=== PATIENT | female | born 2000 | race Caucasian/White ===

== ENCOUNTER 2025-02-22 00:19 | Day surgery (SDC) | payer OTHER, SELFPAY ==
[2025-02-14 10:49] VITALS: BMI 22.5
--- NOTE | 2025-02-14 10:56 | PC.NURSE ---
Report to the Outpatient Waiting Room, entrance under the green pavilion located off [facility], at time _1pm_ on date _[id number]_. Planned Procedure Time: _3pm_.? Time changes happen often and if your time is changed the preop area will call you the afternoon before. - You and your visitor will be asked to self-screen and do not enter if you have any COVID symptoms. Please call surgeon if you need to reschedule. - A mask is optional within the hospital at this time. Patients may have clear liquids (water, carbonated beverages, clear teas, apple juice) until 3 hours prior to surgery with a maximum of 20 ounces. - No food from midnight until time of surgery and no smoking, or chewing tobacco (or any form of nicotine). No chewing gum, candy or mints. Take only the following medications with a SIP of water on the morning of surgery: __Sertraline DO NOT STOP ANY OF YOUR OTHER PRESCRIPTION MEDICATIONS PRIOR TO SURGERY EXCEPT THE FOLLOWING Hold all vitamins and supplements for 3 days per anesthesiologist. Medications to discontinue per physician Date to take last dose Please no make-up, nail turkish, hairspray, perfume, deodorant, or body powder the day of surgery.? No jewelry (including any body piercings) or valuables the day of surgery, leave them at home.? Please take a shower or bath the night before, or the morning of, surgery with an antibacterial soap.? Wear comfortable, loose fitting clothing.? - Jewelry must be removed prior to entering the operating room.? Rings and piercings that are not removed may be cut off. - The hospital will not accept responsibility for valuables.? - Please leave all valuables, including medications, at home the day of surgery. If you are going home after surgery, a licensed fence post driver must drive you home.? - NO public transportation without another adult if you receive anesthesia. - We recommend that an adult stay with you for 24 hours following discharge. - We also recommend that you do not drive, make important decision, drink alcoholic beverages, or take any drugs that were not prescribed by your health care provider for at least 24 hours after your discharge time. Follow any additional instructions given to you from your surgeon. Telephone instructions given to _Kim___and asked if any additional questions and then verbalized understanding. Patient advised to call surgeon office or pre surgery nurse liaison [phone] if any additional questions.
[2025-02-22] VITALS (8 sets, daily range): BP systolic 127–157; BP diastolic 76–99; PULSE 82–115; RESP 12–18; TEMP 36.6–37.1; O2SAT 94–100
--- OUTSIDE RECORDS SUMMARY | 2025-02-22 00:21 | XMS_ITS | Clinical Summary ---
Author Organization [facility] Address [address] [place] [address] Care Team Providers Care Night Monitor Name Role Phone Elysia Wisdom MD Primary Care Provider [phone] [facility],non-owned Affiliates and Associated Physician Practices is amultiple site organization consisting of ambulatory clinics and hospital sitesin [place], [place], [place] and [place]. This disclosure is being madepursuant to the Care Everywhere program and may not contain all information available regarding this patient. Last updated 18.[facility] Allergies No known active allergies Medications * Be aware that medications may not be up to date on this document. Alwaysverify current medications with the patient. Medication Sig Dispensed Refills Start Date End Date Status Vit-Fe Fumarate-FA ( vitamin) 28-0.8 MG tablet Take 1 (one) tablet by mouth once daily Active ibuprofen (Motrin) 600 MG tablet Take 1 (one) tablet by mouth every 6 hours as needed for Pain 45 tablet 04/11/2023 Active Additional Information Patient not taking.Reported on 04/18/2023 docusate sodium (Colace) 100 MG capsule Take 1 (one) capsule by mouth 2 times daily as needed for Constipation 45 capsule 04/11/2023 Active Additional Information Patient not taking.Reported on 04/18/2023 oxyCODONE, immediate release, (Roxicodone) 5 MG tabletIndications: state (HCC) Take 1 (one) tablet by mouth every 6 hours as needed for Pain 12 tablet 04/11/2023 Active Additional Information Patient not taking.Reported on 04/18/2023 norethindrone (Ortho Micronor) 0.35 MG tabletIndications: Contraceptive Therapy Take 1 (one) tablet by mouth once daily Reasons: Control Treatment 3 packet 3 05/16/2023 Active Active Problems No known active problems Resolved Problems Problem Noted Date Diagnosed Date Resolved Date Vaginal bleeding 04/07/2023 04/11/2023 JAIL: abnormality in pr egnancy - Club Feet 03/25/2023 04/08/2023 Overview (03/25/2023): Images from the original note were not included. Care Provider: Dr. Chen [place] [facility] [place] consultants involved: RN-Kei; Ortho-Trung Deutsch Diagnosis: Bilateral Club Feet Planned surveillance: Patient was not seen in JAIL/by JAIL MFM - ortho consult only Delivery location: Delivery mode: TBD - G1 Desired Delivery GA: Full Term follow up: per Ortho consult on 5.5: The parents will contact us after the of her daughter, with any findings, and schedule serial casting with us if they would like. To schedule an appointment with orthopedics, please call [phone] Medical Collections Specialist: Care plan based on evaluation and is subject to change based on assessment. See Images or Cardiac under Chart Review for US/ ECHO/ MRI reports. consult 03/21/2023 04/11/2023 Immunizations Name Administration Dates Next Due MMR 04/09/2023() TDAP (7yrs+) 04/08/2023() Social History Tobacco Use Types Packs/Day Years Used Date Smoking Tobacco: Never Smokeless Tobacco: Never Tobacco Cessation:Counseling Given: Not Answered Alcohol Use Standard Drinks/Week Comments Not Currently 0 (1 standard drink = 0.6 oz pur e alcohol) Overall Financial Resource Strain (CARDIA) Answe r Date Recorded How hard is it for you to pa y for the very basics like food, housing, medical care, and heating? Not hard at all 05/16/2023 [facility] [place] of Occupat ional Health - Occupational Stress Questionnaire Answer Date Recorded Do you feel stress - tense, restless, nervous, or anxious, or unable to sleep at night because your mind is troubled all the time - these days? Not at all 05/16/2023 Hunger Vital Sign Answer Date Recorded Within the past 12 months, y ou worried that your food would run out before you got the money to buy more. Never true 05/16/20 23 Within the past 12 months, t he food you bought just didn't last and you didn't have money to get more. Never true 05/16/2023 PRAPARE - Transportation Answer Date Re corded In the past 12 months, has l ack of transportation kept you from medical appointments or from getting medications? No 04/19 In the past 12 months, has l ack of transportation kept you from meetings, work, or from getting things needed for daily living? No 05/16/2023 Housing Stability Vital Sign Answer Papi e Recorded In the last 12 months, was t here a time when you were not able to pay the mortgage or rent on time? No 05/16/2023 In the last 12 months, how many places have you lived? 1 05/16/2023 In the last 12 months, was t here a time when you did not have a steady place to sleep or slept in a prison (including now)? No 05/16/2023 [place] Depression Scale Answer Date Recorded [place] Depression Scale Total 0 05/16/2023 The thought of harming myself has occurred to me . Never 05/16/2023 Sex and Gender Information Value Date Recorded Sex Assigned at Not on file Gender Identity Female 12/29/2024 8:30 AM INSPECTOR SET UP AND LAY OUT Sexual Orientation Straight 12/29/2024 8: 30 AM INSPECTOR SET UP [employer] LAY OUT Last Filed Vital Signs Vital Sign Reading Time Taken Comments Blood Pressure 117/79 05/16/2023 9:47 AM CDT Pulse 82 05/16/2023 9:47 AM CDT Temperature 36.4 C (97.6 F) 04/11/2023 7:45 AM CDT Respiratory Rate 16 04/11/2023 7:45 AM CDT Oxygen Saturation 100% 04/11/2023 7:45 AM CDT Inhaled Oxygen Concentration - - Weight 63.5 kg (140 lb) 05/16/2023 9:47 AM CDT Height 162.6 cm (5' 4 ) 04/07/2023 2:48 PM CDT Body Mass Index 24.03 04/07/2023 2:48 PM CDT Plan of Treatment Health Maintenance Due Date Last Done Comments HIV SCREENING 2014 HPV VACCINE (1 - 3-dose series) 2014 HEPATITIS C SCREENING 04/10/2017 DTAP/TDAP/TD VACCINES (1 - Tdap) 2018 HEPATITIS B VACCINE (1 of 3 - 19+ 3-dose series) 2018 CHLAMYDIA/GONORRHEA SCREENING 04/07/2024 04/07/2023 COVID-19 VACCINE (3 - 2023-2 5 season) 2024 11/15/2021, 10/16/2021 INFLUENZA VACCINE (#1) 2024 08/23/2022 DEPRESSION SCREENING 11/17/2024 PAP SMEAR 05/16/2026 05/16/2023 ZOSTER VACCINE (1 of 2) 2049 HIB VACCINE Aged Out No longer eligi ble based on patient's age to complete this topic MENINGOCOCCAL (Group B) VACCINE SHARED DECISION-MAKING Aged Out No longer eligible based on patient's age to complete this topic MENINGOCOCCAL GROUPS A/C/Y/W VACCINE Aged Out No longer eligible b ased on patient's age to complete this topic PNEUMOCOCCAL VACCINE Aged Out No long er eligible based on patient's age to complete this topic Procedures Procedure Name Priority Date/Time Associated Diagnosis Comments PAP IG LB RFLX HPV APTIMA ASCU Routine 05/16/2023 10:15 AM CDT care and examination CHLAMYDIA + GC AMPLIFIED PROBE STAT 04/07/2023 4:09 PM CDT Vaginal bleeding from Last 3 Months or Most Recently Relevant to Health Maintenance Results * PAP IG LB RFLX HPV APTIMA ASCU (05/16/2023 10:15 AM CDT) Diagnosis Comment 05/21/2023 10:08 AM CDT [facility] Comment: NEGATIVE FOR INTRAEPITHELIAL LESION OR MALIGNANCY. THIS SPECIMEN WAS RESCREENED PART OF OUR TRANSFER KNITTER PROGRAM. Specimen Adequacy Comment 023 10:08 AM CDT [facility] Comment:Satisfactory for dora luation. No endocervical component is identified. Performed by Comment 05/21/2023 10:08 AM CDT [facility] Comment:Raquel Breen Cytodanii chnologist (ASC) QC Reviewed by Comment 05/21/2023 10:08 AM CDT [facility] Comment:Candie Chan Distillation Operator Helper (ASC) Comment . 05/21/2023 10:08 AM CDT [facility] Note Comment 05/21/2023 10:08 AM CDT [facility] Comment: The Pap smear is a screening test designed to aid in the detection of premalignant and malignant conditions of the uterine cervix. It is not a diagnostic procedure and should not be used as the sole means of detecting cervical cancer. Both false-positive and false-negative reports do occur. IGLBP CPT Code Automation Comment 05/21/2023 10:08 AM CDT [facility] Comment: This liquid based ThinPrep(R) pap test was screened with the use of an image guided system. Note Comment 05/21/2023 10:08 AM CDT [facility] Comment: The HPV DNA reflex criteria were not met with this specimen result therefore, no HPV testing was performed. Pathology/Cytolo gy ENTIRE ENDOCERVIX / Unknown Collection / Unknown 05/16/2023 10:15 AM CDT 05/16/2023 10:26 AM CDT Narrative [facility] - 05/21/2023 10:08 AM CDT Performed at: [address] [place] [address] [id number] Hydraulic Jack Mechanic: Fang Tejada MD, Phone: [phone] Specimen Comment: No. of containers..01 ThinPrep Vial Lindsey Evans LAWN MOWER-LANDSCAPE ARCHITECTURE TEACHER LAB - PATHOLOGY/ CYTOLOGY ORDERABLES [facility]) [address] [place] [address] * CHLAMYDIA + GC AMPLIFIED PROBE (04/07/2023 4:09 PM CDT) Chlamydia Amplified Probe Negative Negative 04/08/2023 4:01 AM CDT [facility] GC Amplified Probe Negative Negative 04/08/2023 4:01 AM CDT [facility] Microbiology ENTIRE ENDOCERVIX / Unknown Collection / Unknown 04/07/2023 4:09 PM CDT 04/07/2023 4:13 PM CDT Narrative [facility] - 04/08/2023 4:01 AM CDT Results based on detection/no detection of ribosomal RNA by amplified method. Olegario Bowen DO LAB - MICROBIOLOGY O RDERABLES [facility] [address] [place] [address], [facility] [phone] from Last 3 Months or Most Recently Relevant to Health Maintenance Advance Directives * Full Code (Latest Code Status on File) Date Activated Date Inactivated Comments 04/07/2023 4:48 PM 04/11/2023 1:51 PM Care Teams Night Monitor Relationship Specialty Start Date End Date Elysia Wisdom MD [address] [place] [address] PCP - General Family Medicine 04/07/23
[2025-02-22] MEDS: LACTATED RINGERS 1,000 ML 30 ML IV CONT ×2 (10:30→13:33)
[2025-02-22 10:46] LABS: BEDSIDEPREGUCG Negative (Negative)
[2025-02-22] MEDS: TRANEXAMIC ACID 1,000MG/ISO100 1,000 MG/100 ML BAG 200 MG IVPB (10:50)
--- NOTE | 2025-02-22 11:57 | WPDHPUPDATE1 ---
History and Physical Update Update Date/Time: 02/22/25 11:57 History and Physical has been reviewed, including an updated exam of the patient. There are NO changes in the patient's condition. Risks, benefits, and alternatives have been discussed and questions answered. Patient agrees to proceed with procedure.
--- NOTE | 2025-02-22 11:58 | P.PNAN_ITS ---
Anes - Initial Pre Proc Eval Procedure: Operation Date: 02/22/25 11:30 Proposed Procedures p Bilateral Breast Augmentation - Justin Mccoy MD Date/Time: 02/22/25 11:58 Surgeon: Justin Mccoy MD Pre Op Diagnosis: micromastia Patient Data Age: 24 Gender: F Height: 1.65 m Weight: 61.1 kg Last Vital Signs Temp 37.1 C 02/22/25 10:39 Pulse 100 02/22/25 10:39 Resp 18 02/22/25 10:39 BP 143/86 H 02/22/25 10:39 Pulse Ox 100 02/22/25 10:39 O2 Del Method Room Air 02/22/25 10:39 Allergies Allergy/AdvReac Type Severity Reaction Status Date / Time No Known Allergies Allergy Verified 02/22/25 10:34 Home Medications ?Medication ?Instructions ?Recorded ?Confirmed ?Type dextroamphetamine-amphetamine 10 10 mg PO BID 02/14/25 02/22/25 History mg tablet (Adderall) norethindrone 1 mg-ethinyl 1 tablet PO HS 02/14/25 02/22/25 History estradiol 20 mcg (21)-iron 75 mg (7) tablet (Evangelista Fe / (28)) sertraline 50 mg tablet 50 mg PO DAILY 02/14/25 02/22/25 History Laboratory Tests 02/22/25 10:39 POC Urine HCG, Qual Negative (Negative) Patient hx anesthesia problems: none Family hx anesthesia problems: none Results Review: All pre-operative results and documents have been reviewed as part of the pre- operative evaluation. [facility] Social History Social History Smoking status: Never smoker Alcohol intake: current Living arrangements: with family Spiritual care concerns: No Anes - Eval Final PreProcedure Day of Procedure 02/22/25 11:58 Patient weight: normal Heart: regular rate and rhythm Lungs: clear to auscultation Airway: Mallampati scale class II Neurological: alert and oriented Last oral intake: >/= 8 hours ASA classification: II Emergent: no Anesthetic plan: proceed Anesthesia type and monitoring: general LMA and standard monitoring Results Review: All pre-operative results and documents have been reviewed as part of the pre- operative evaluation. Informed Consent: The patient's anesthetic plan and its attendant risks and benefits were discussed with the patient/family/POA. Questions were solicited and answers provided to the satisfaction of the patient/family/POA.
--- NOTE | 2025-02-22 12:16 | W.PM.PROC2 ---
Procedure Note - Detailed Date of Procedure 02/22/25 Pre-op Diagnosis micromastia Post-op Diagnosis Same Procedure Performed Bilateral augmentation mammaplasty Surgeon Justin Mccoy MD Anesthesia General Findings Bilateral Kirby eBrmudez Cohesive 445 cc Right - REF# [id number] SN [id number] Left - REF# [id number] SN [id number] Description of Procedure She is here today for bilateral breast augmentation. Previously and again today the risks, benefits, alternatives were discussed in extensive detail. I wanted her to be very realistic about the risks involved as well as expectations. We discussed aftercare and what to monitor for. Made sure answered all of her questions to her satisfaction today and consent was obtained. Marked in the preoperative holding area with their verification. The patient was taken to the operating room placed supine on the operating table. Anesthesia was provided by anesthesiology. A surgical time-out was taken. We cleansed the skin and 1% lidocaine and 0.25% Marcaine with epinephrine was used anesthetize as a field block. She was prepped and draped in a standard sterile fashion. Tegaderm nipple Mcdaniel were placed. A 15 blade used to make an incision along the inframammary fold. Dissection was continued at 45 degree angle until the chest wall as identified. I elevated a subfascial pocket in the appropriate dimensions based on our preoperative planning for the implant. I then copiously irrigated with saline solution and verified a strict hemostasis. Next the use a triple antibiotic and Betadine containing solution to irrigate the pocket. I washed my gloves with the triple antibiotic and Betadine solution. We washed the implant immediately upon opening it with this solution and only opened it when we needed it. I used implant funnel and no-touch technique. The implant was introduced into the pocket using the funnel. Having verified positioning of the implant this was closed using 2-0 PDS followed by 3-0 Monocryl in a running subcuticular 4-0 Monocryl followed by tissue glue. Fluffs and surgical bra were placed. Patient was awoke and taken to PACU without difficulty. All instrument sponge counts were correct at the end of the case. Estimated Blood Loss 20 Drains No Packing No Pathology None sent Complications No immediate complications Condition Stable Disposition PACU
[2025-02-22] MEDS: NACL 0.9% IRRIG POUR BOTTLE 900 ML, GENTAMICIN SULFATE INJ 160 MG, ceFAZolin 2 GM, POVI... IRRIGATION (12:33)
[2025-02-22] MEDS: LIDO 1%/EPINEPHRINE 1:100,000 50 ML VIAL 30 ML INFILTRATE (12:33)
[2025-02-22] MEDS: ceFAZolin 2 GM/D5W 50 ML 2 GM/50 ML BAG IVPB (12:33)
[2025-02-22] MEDS: BUPivacaine HCL 0.5% PF 30 ML VIAL INFILTRATE (12:33)
[2025-02-22] MEDS: fentaNYL CITRATE INJ (*CRX) 100 MCG/2 ML VIAL 25 MCG IV PUSH ×4 (13:47→13:57)
[2025-02-22] MEDS: oxyCODONE HCL (*CRX) 5 MG TAB IR PO (14:20)
== END 2025-02-22 15:03 | disposition home or self-care (01) ==
PROVIDERS: Visit Provider Surgery Plastic and Reconstructive Surgery
PROC: (CPT 19325; principal; 2025-02-22 11:30)
DX: Z41.1 Encounter for cosmetic surgery (principal); N64.82 Hypoplasia of breast; N64.81 Ptosis of breast; Z98.890 Other specified postprocedural states; Z80.3 Family history of malignant neoplasm of breast
CPT/HCPCS: 19325; A9270; J0690; J1100; J1171; J1580; J2003; J2004; J2250; J2405; J2704; J3010; J7030; J7120